=== PATIENT | female | born 1970 | race Caucasian/White ===

== ENCOUNTER 2017-11-28 19:31 | Emergency (ER) | payer MEDICAID, OTHER ==
[2017-11-28 21:12] LABS: ADD UMIC YES; UR ASCORBIC ACID NEGATIVE (NEGATIVE); UR BILIRUBIN (Dip) NEGATIVE (NEGATIVE); UR BLOOD (Dip) 3+ mg/dL (NEGATIVE); UR CLARITY CLEAR (CLEAR); UR COLOR STRAW (YELLOW); UR GLUCOSE (Dip) NEGATIVE (NEGATIVE); UR KETONES (Dip) TRACE mg/dL (NEGATIVE); UR LEUKOCYTE ESTERASE (Dip) TRACE Leu/ul (NEGATIVE); UR NITRITE (Dip) NEGATIVE (NEGATIVE); UR RBC 0 /HPF (0-5); UR SPECIFIC GRAVITY (Dip) 1.002 (1.003-1.030); UR SQUAMOUS EPITHELIAL CELL FEW /HPF (FEW); UR TOTAL PROTEIN (Dip) NEGATIVE (NEGATIVE); UR UROBILINOGEN (Dip) NEGATIVE (NEGATIVE); UR WBC 1 /HPF (0-5)
[2017-11-28] MEDS: ONDANSETRON 4 MG INJ IV (21:15)
[2017-11-28] MEDS: KETOROLAC 15 MG INJ IV (21:15)
[2017-11-28] MEDS: SOD CHLORIDE 0.9% 1,000 ML IV (21:15)
[2017-11-28 21:48] LABS: ADD MAN DIFF? NO
[2017-11-28 21:52] LABS: BASOPHILS % 0.2 % (0.0-2.0); HEMATOCRIT 36.7 % (37.0-47.0); HEMOGLOBIN 11.9 g/dl (12.0-16.0); LYMPHOCYTES # 0.8 10^3/ul (0.8-2.9); LYMPHOCYTES % 7.8 % (15.0-51.0); MEAN CORPUSCULAR HGB CONC 32.4 g/dl (32.0-37.0); MEAN CORPUSCULAR VOLUME 89.5 fl (82.0-101.0); MEAN PLATELET VOLUME 10.3 fl (7.4-10.4); MONOCYTE # 1.2 10^3/ul (0.3-0.9); NEUTROPHIL # 8.7 10^3/ul (1.6-7.5); NEUTROPHILS % 80.8 % (39.0-77.0); PLATELET COUNT 255 10^3/UL (140-415); RED CELL DISTRIBUTION WIDTH 13.9 % (11.5-14.5)
[2017-11-28 21:52] LABS: WHITE BLOOD COUNT 10.7 10^3/ul (4.8-10.8)
[2017-11-28 22:12] LABS: ALANINE AMINOTRANSFERASE 29 IU/L (13-69); ALBUMIN 3.9 g/dl (3.3-4.9); ALBUMIN/GLOBULIN RATIO 1.18; ALKALINE PHOSPHATASE 63 IU/L (42-121); ANION GAP 12 (8-16); ASPARTATE AMINO TRANSFERASE 19 IU/L (15-46); BILIRUBIN,INDIRECT 0.2 mg/dl (0-1.1); BILIRUBIN,TOTAL 0.2 mg/dl (0.2-1.3); BLOOD UREA NITROGEN 4 mg/dl (7-20); CALCIUM 8.9 mg/dl (8.4-10.2); CARBON DIOXIDE 25 mmol/L (21-31); CHLORIDE 105 mmol/L (97-110); CREATININE 0.54 mg/dl (0.44-1.00); GLUCOSE 115 mg/dl (70-220); LIPASE 41 U/L (23-300); POTASSIUM 3.3 mmol/L (3.5-5.1); SODIUM 139 mmol/L (135-144); TOTAL PROTEIN 7.2 g/dl (6.1-8.1)
[2017-11-28] MEDS: ACETAMINOPHEN 325 MG TAB PO (22:25)
== END 2017-11-28 22:40 | disposition home or self-care (01) ==
LOC: FTE 19:31
DX: N30.01 Acute cystitis with hematuria (principal); R40.2412 Glasgow coma scale score 13-15, at arrival to emergency department
CPT/HCPCS: 36415; 76775; 80053; 81001; 81025; 83690; 85025; 87086; 96374; 96375; 99285-25